=== PATIENT | female | born 1940 | race Caucasian/White ===

== ENCOUNTER 2016-07-02 11:59 | Emergency (ER) | payer MEDICARE, OTHER ==
[2016-07-02 12:55] LABS: BILIRUBIN 1+ mg/dL (NEGATIVE); BLOOD 1+ Ery/uL (NEGATIVE); CLARITY HAZY (CLEAR); COLOR YELLOW (YELLOW); GLUCOSE (U) TRACE mg/dL (NORMAL); KETONE (U) TRACE mg/dL (NEGATIVE); LEUKOCYTES NEGATIVE Leu/uL (NEGATIVE); NITRITE NEGATIVE (NEGATIVE); PROTEIN 1+ mg/dL (NEGATIVE); SPECIFIC GRAVITY 1.025 (1.001-1.030); UROBILINOGEN 0.2 mg/dL (0.2-1.0)
[2016-07-02 13:08] LABS: BACTERIA 1+
[2016-07-02 13:51] LABS: BASOPHIL 0.3 % (0-2); EOSINOPHIL 0.5 % (0-7); HCT 32.5 % (37.0-47.0); HGB 10.3 g/dl (12.5-16.0); LYMPHOCYTE 12.7 % (15-48); MCH 29.7 pg (25.0-31.0); MCHC 31.7 g/dL (32.0-36.0); MCV 93.7 fL (78.0-100.0); MONOCYTE 8.7 % (0-12); MPV 9.2 fL (6.0-9.5); PLT 242 K/uL (150-400); RBC 3.47 M/uL (4.20-5.40); WBC 7.3 K/uL (4.0-10.5)
[2016-07-02 13:54] LABS: NEUTROPHIL 77.8 % (41-80)
[2016-07-02 14:10] LABS: ALBUMIN 2.8 g/dL (3.4-4.8); CREATININE 1.2 mg/dL (0.5-1.0); GLOBULIN (CALCULATION) 3.7 g/dL (2.2-4.2); POTASSIUM 4.7 mmol/L (3.5-5.1); TOTAL PROTEIN 6.5 g/dL (6.4-8.3)
[2016-07-02 14:30] LABS: BILIRUBIN - TOTAL 0.5 mg/dL (0.1-1.0)
== END 2016-07-02 15:17 | disposition home or self-care (01) ==
LOC: FER 11:59
PROVIDERS: Emergency Medicine
DX: J06.9 Acute upper respiratory infection, unspecified (principal); N39.0 Urinary tract infection, site not specified; I10 Essential (primary) hypertension; E11.9 Type 2 diabetes mellitus without complications; E78.5 Hyperlipidemia, unspecified; Z79.84 Long term (current) use of oral hypoglycemic drugs; Z79.899 Other long term (current) drug therapy
CPT/HCPCS: 36415; 71010; 80053; 81001; 85025; 87804; 87899